=== PATIENT | female | born 1990 | race Caucasian/White ===

== ENCOUNTER 2017-06-14 06:04 | Inpatient (IN) | payer MEDICAID ==
[~2017-06-14] VITALS: Ht 157.5 cm; Wt 65.0 kg
[~2017-06-14 06:04] MED LIST: ACET325T14 PO; DOCU-131 PO; IBUP-1222 PO; OXYC-302 PO; PREN1TAB52 PO
[2017-06-14] MEDS ORDERED: OXYTOCIN 30U/ 0.9% NaCL 500ML 500 ML IV ONE (06:07)
[2017-06-14 06:16] VITALS: BP 111/69
[2017-06-14] MEDS: LACTATED RINGERS 1,000 ML IV SCH ×4 (06:30→18:44)
[2017-06-14] MEDS ORDERED: MISOPROSTOL 25 MCG TABLET VG PRN (06:30)
[2017-06-14] MEDS ORDERED: ONDANSETRON 2MG/ML, 2ML IVPush PRN (06:30)
[2017-06-14] MEDS ORDERED: FENTANYL PF 100 MCG/2ML IV PRN (06:30)
[2017-06-14] MEDS ORDERED: CALCIUM CARBONATE 500 MG TAB.CHEW PO PRN (06:30)
[2017-06-14] MEDS ORDERED: SODIUM CITRATE/CITRIC ACID 30 ML UDC PO PRN (06:30)
[2017-06-14] MEDS ORDERED: FENTANYL PF 100 MCG/2ML IVPush PRN (06:30)
[2017-06-14] MEDS ORDERED: METOCLOPRAMIDE 5 MG/ML, 2ML IVPush PRN (06:30)
[2017-06-14] MEDS ORDERED: TERBUTALINE 1 MG/ML, 1ML IVPush PRN ×2 (06:30)
[2017-06-14] MEDS ORDERED: LIDOCAINE 1%, 20ML ONE (06:40)
[2017-06-14] MEDS ORDERED: MISOPROSTOL 200 MCG TABLET ONE (06:41)
[2017-06-14] MEDS ORDERED: MISOPROSTOL 25 MCG TABLET ONE (06:41)
[2017-06-14] MEDS ORDERED: OXYTOCIN 30U/ 0.9% NaCL 500ML 500 ML ONE ×2 (06:41→17:35)
[2017-06-14 06:46] LABS: HEMATOCRIT 36.6 % (34.6-47.8); HEMOGLOBIN 12.5 g/dL (11.7-16.4); WHITE BLOOD COUNT 8.4 x10^3/uL (3.4-10)
[2017-06-14] MEDS ORDERED: FENTANYL/BUPIV./NS/PF 250 ML EPIDCONT SCH (10:44)
[2017-06-14] MEDS ORDERED: BUPIVACAINE/PF 0.25% ONE (10:46)
[2017-06-14] MEDS ORDERED: FENTANYL/BUPIV./NS/PF 250 ML EPIDCONT ONE ×2 (10:46→10:47)
[2017-06-14] MEDS ORDERED: BUPIVACAINE 0.25% ONE (10:47)
[2017-06-14] MEDS ORDERED: LACTATED RINGERS 1,000 ML IVBOLUS PRN (11:00)
[2017-06-14] MEDS ORDERED: EPHEDRINE 50 MG/ML, 1ML IVPush PRN (11:00)
[2017-06-14] MEDS ORDERED: NALOXONE 0.4 MG/ML, 1ML IVPush PRN (11:00)
[2017-06-14] MEDS: D5%-LACTATED RINGERS 1,000 ML IV SCH ×2 (14:07→14:31)
[2017-06-14] MEDS ORDERED: OXYcodone/APAP 5/325MG TABLET PO PRN ×2 (17:00)
[2017-06-14] MEDS ORDERED: ACETAMINOPHEN 325 MG TABLET PO PRN ×2 (17:00)
[2017-06-14] MEDS ORDERED: METOCLOPRAMIDE 5 MG/ML, 2ML IV PRN (17:00)
[2017-06-14] MEDS ORDERED: MISOPROSTOL 200 MCG TABLET PR PRN (17:00)
[2017-06-14] MEDS ORDERED: ONDANSETRON 2MG/ML, 2ML IV PRN (17:00)
[2017-06-14] MEDS: OXYTOCIN 30U/ 0.9% NaCL 500ML 500 ML IV SCH (17:38)
[2017-06-14 19:30] VITALS: BP 101/62
[2017-06-14] MEDS: IBUPROFEN 600 MG TABLET PO PRN (22:01)
[2017-06-14] MEDS: DOCUSATE 100 MG CAPSULE PO PRN (22:02)
[2017-06-15 00:25] VITALS: BP 95/58
[2017-06-15 00:40] LABS: HEMATOCRIT 31.4 % (34.6-47.8); HEMOGLOBIN 10.7 g/dL (11.7-16.4)
[2017-06-15] MEDS: OXYTOCIN 30U/ 0.9% NaCL 500ML 500 ML IV SCH (02:36)
[2017-06-15 05:00] VITALS: BP 98/54
[2017-06-15] MEDS: IBUPROFEN 600 MG TABLET PO PRN ×3 (05:59→19:43)
[2017-06-15 08:00] VITALS: BP 102/66
[2017-06-15] MEDS: DOCUSATE 100 MG CAPSULE PO PRN ×2 (09:20→19:43)
[2017-06-15] MEDS: PRENATAL VIT/IRON/FA 1 EACH TABLET PO SCH (09:20)
[2017-06-15] MEDS ORDERED: IBUP-1222 PO (10:51)
[2017-06-15] MEDS ORDERED: DIPH,PERTUSS(ACELL),TET VAC/PF NC IM-VACC ONE ×2 (17:54→18:30)
[2017-06-15 19:30] VITALS: BP 91/57
[2017-06-16 08:00] VITALS: BP 100/66
[2017-06-16] MEDS: DOCUSATE 100 MG CAPSULE PO PRN (08:54)
[2017-06-16] MEDS: IBUPROFEN 600 MG TABLET PO PRN (08:55)
[2017-06-16] MEDS: PRENATAL VIT/IRON/FA 1 EACH TABLET PO SCH (08:55)
== END 2017-06-16 13:09 | disposition home or self-care (01) | DRG 775 ==
LOC: LDIP 06:04 → 2NW 19:15
PROVIDERS: ADMIT Obstetrics & Gynecology; ATTEND Obstetrics & Gynecology
PROC: 10E0XZZ Delivery of Products of Conception, External Approach (ICD-10-PCS; principal; 2017-06-14)
PROC: 0KQM0ZZ Repair Perineum Muscle, Open Approach (ICD-10-PCS; 2017-06-14)
PROC: 00HU33Z Insertion of Infusion Device into Spinal Canal, Percutaneous Approach (ICD-10-PCS; 2017-06-14)
PROC: 3E0R3CZ (ICD-10-PCS; 2017-06-14)
DX: O43.123 Velamentous insertion of umbilical cord, third trimester (principal); O70.1 Second degree perineal laceration during delivery; Z37.0 Single live birth; Z3A.39 39 weeks gestation of pregnancy
CPT/HCPCS: 36415; 85025; 86850; 86900; 90715; J3490; J2590; J3010; J7120; J7121